=== PATIENT | male | born 2005 | race Caucasian/White ===

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

== ENCOUNTER 2024-08-20 07:53 | Emergency (ER) | payer SELFPAY ==
--- NOTE | ~2024-08-20 | CT_ITS ---
CLINICAL INDICATION: Right lower quadrant pain COMPARISON: None. TECHNIQUE: Multiple contiguous axial images of the abdomen and pelvis were performed following the ad ministration of with 100 mL Omnipaque-350 intravenous contrast The dose-length product (DLP) was 178.97 mGy-cm. Automated exposure control and iterative reconstruction technique were employed. FINDINGS/OBSERVATIONS: Visualized lower thorax: The bilateral lung bases are clear. The heart is of normal size, without pericardial effusion. Liver: The liver demonstrates homogeneous enhancement and is borderline enlarged measuring 19 cm in longitud inal dimension. Gallbladder and biliary system: The gallbladder is only minimally distended, and otherwise unremarkable. Pancreas: The pancreas enhances homogeneously without ductal dilatation. Spleen: The spleen enhances homogeneously and is not enlarged. Kidneys: The bilateral kidneys enhance symmetrically without hydronephrosis or renal calculi. Adrenal glands: Unremarkable. Gastrointestinal tract: Fecal stasis within the colon. Hypervascularity within the mucosa of the rectum, seminal vesicles, prostate gland and glans penis, c onsistent with patient's presentation. Query the presence of hematuria. Appendix: The air-filled appendix is of normal caliber (coronal series, images 33 through 42). Vasculature: Unremarkable. Lymph nodes: No pathologically enlarged or morphologically suspicious lymph nodes within the retroperitoneum or at the root of the mesentery. Pelvic structures: The bladder is only minimally distended, and otherwise unremarkable. The prostate gland is not enlarged, but demonstrates hypervascularity, as does the mucosa of the rect um, seminal vesicles, prostate gland and glans penis, consistent with patient's presentation. Query t he presence of hematuria. Body wall and musculoskeletal: No significant degenerative disease within the lower thoracic or lumbosacral spine. IMPRESSION: Hypervascularity within the mucosa of the rectum, seminal vesicles, prostate gland and glans penis, c onsistent with patient's presentation. Query the presence of associated hematuria. Reviewed, dictated and finalized at location A. IMPRESSION: Hypervascularity within the mucosa of the rectum, seminal vesicles, prostate gl and and glans penis, consistent with patient's presentation. Query the presence of associated hematuria.
--- OUTSIDE RECORDS SUMMARY | 2024-08-20 08:01 | XMS_ITS | Patient Health Record ---
Author Organization [facility] [employer] [facility] Address [address] [facility] [address] [place] [address] Care Team Providers Care Business Applications Specialist Name Role Phone Diallo MACIAS, Jaime Primary Care Provider Gunjan Chino Unavailable [phone] Yenny Hull Unavailable [phone] Allergies No Known Allergies Reason For Referral No Information Social History Sex Assigned At : Social History Observation Description Sex Assigned At Male Encounters Encounter Location Date Provider Diagnosis [facility] [employer] [place] [id number] [address] 12/25/2023 Yenny Hull [facility] [employer] [place] [place] [place] [address] [facility] [address] [address] 03/24/2024 Gunjan Puri Plan Of Treatment No Information Insurance Providers Payer Name Payer Address Payer Phone Subscriber Number Group Number Insured Name Patient Relationship to Insured Coverage Start Date Coverage End Date [facility] [address] [place] [address] [id number] Shahriar Man Self - patient is the insured Medical (General) History Medical History History ICD Code HTN
--- OUTSIDE RECORDS SUMMARY | 2024-08-20 08:01 | XMS_ITS | Continuity of Care Document ---
Author Organization [facility] Address [address] [place] [address] [place] [address] Phone Care Team Providers Care Head Operator Name Role Phone Chris Chung MD Unavailable Unavailab le Allergies, Adverse Reactions, Alerts Substance Reaction Status Criticality No Known Allergies Active No Inform ation Procedures Procedure Date OFFICE/OUTPATIENT VISIT, EST OFFICE/OUTPATIENT VISIT, [facility] Advance Directives Directive Yes / No Effective Date File Name Other Directive No N/A N/A WARNING:The information contained in this section is historical and is provided for information only and does not constitute a legal document or any assurance that the information is still accurate. Please verify the information with the mackenzie of the legal document before using it for clinical purposes. Encounters Encounter Description Practice Location Reason(s) For Visit Diagnoses Date Provider Providers Copied on Encounter [facility], [address] [place] [address], [id number], tel:[phone] [facility] No Information 3 Sheldon Perez. [address] [place] [address], [id number], [place]. tel:[phone] OFFICE/OUTPAT IENT VISIT, EST [facility], [address] [place] [address], [id number], tel:[phone] [facility] right knee pain (chief complaint) Tendinitis of right quadriceps tendon 3 Sheldon Perez. [address] [place] [address], [id number], [place]. tel:[phone] Referring Provider: Chris Chung, [address] [place] [address], [id number]. tel:[phone] OFFICE/OUTPAT IENT VISIT, [facility], [address] [place] [address], [id number], tel:[phone] [facility] right knee pain (chief complaint) Strain of right quadriceps, initial encounter Dianne Dean. [address] [place] [address], [id number], [place]. tel:[phone] Referring Provider: Chris Chung, [address] [place] [address], [id number]. tel:[phone] Family History Family Member Type Diagnosis Age At Onset No Information Payers Payer name Insurance type Covered green party ID Maria Doloresdesiree bushraanurag(ronSonya [id number] Social History Type Description Quantity Date Captured Comments Alcohol Use Details No Caffeine Use Details Unknown Tobacco Use Status No Information Smoking Status Never smoker Sex Male Chief Complaint And Reason For Visit No Information Reason For Referral Reason For Referral No Information History Of Present Illness Encounter Date Complaint History Of Prese nt Illness right knee pain right knee pain Functional Status Date Functional Assessmen t No Information Instructions Date Instruction Additional Infor mation No Information Assessments Type Assessment Date No Information Patient Care Teams Name Effective Dates (start - stop) Status Members No Information
--- OUTSIDE RECORDS SUMMARY | 2024-08-20 08:01 | XMS_ITS | Clinical Summary ---
Author Organization [facility] Address [address] [place] [address] Care Team Providers Care Welt Cutter Name Role Phone Geoffrey Duarte MD Primary Care Provider Source Comments [facility],non-owned Affiliates and Associated Physician Practices is amultiple site organization consisting of ambulatory clinics and hospital sitesin [place], [place], [place] and [place]. This disclosure is being madepursuant to the Care Everywhere program and may not contain all information available regarding this patient. Last updated 17.[facility] [employer] Allergies Active Allergy Reactions Criticality Noted Date Comments Bee Venom Swelling 09/05/2015 Medications * Be aware that medications may not be up to date on this document. Alwaysverify current medications with the patient. acetaminophen (TYLENOL) 160 MG/5ML solution Take 12.4 mL by mouth every 4 hours as needed for Fever or Pain 150 mL 0 09/12/2015 Active ibuprofen (MOTRIN) 100 MG chew tablet Take 1 Tab by mouth every 6 hours as needed for Pain 10 Tab 0 09/12/2015 Active Family History Medical History Relation Name Comments Anesthesia Reaction Mother confusio n and panic attack Relation Name Status Comments Mother Social History Tobacco Use Types Packs/Day Years Used Date Smoking Tobacco: Passive Smo ke Exposure - Never Smoker Alcohol Use Standard Drinks/Week Comments No 0 (1 standard drink = 0.6 oz pur e alcohol) Sex and Gender Information Value Date Recorded Sex Assigned at Not on file Legal Sex Male 5:44 AM MEDICAID ELIGIBILITY SPECIALIST Gender Identity Not on file Sexual Orientation Not on file Last Filed Vital Signs Vital Sign Reading Time Taken Comments Blood Pressure 121/76 11/05/2017 1:19 PM CDT Pulse 114 11/05/2017 1:19 PM CDT Temperature 36.9 C (98.4 F) 11/05/2017 1:19 PM CDT Respiratory Rate 18 11/05/2017 1:19 PM CDT Oxygen Saturation 100% 09/12/2015 8:30 AM CDT Inhaled Oxygen Concentration 100% 09/12/2015 8 :30 AM CDT Weight 40.6 kg (89 lb 8 oz) 11/05/2017 1:19 PM C DT Height 126.5 cm (4' 1.8) 09/12/2015 6:06 AM CDT Body Mass Index - - Plan of Treatment Health Maintenance Due Date Last Done Comments HIV SCREENING 12/07/2019 HPV VACCINE (1 - Male 3-dose series) 12/07/2019 MENINGOCOCCAL (Group B) VACC INE SHARED DECISION-MAKING (1 of 2 - Standard) 2020 HEPATITIS C SCREENING 12/02/2022 COVID-19 VACCINE (1 - 2023-2 5 season) 2023 DTAP/TDAP/TD VACCINES (1 - Tdap) 12/07/2023 HEPATITIS B VACCINE (1 of 3 - 19+ 3-dose series) 12/07/2023 DEPRESSION SCREENING 02/12/2024 INFLUENZA VACCINE (#1) 2024 ZOSTER VACCINE (1 of 2) 2054 HIB VACCINE Aged Out No longer eligi ble based on patient's age to complete this topic MENINGOCOCCAL GROUPS A/C/Y/W VACCINE Aged Out No longer eligible b ased on patient's age to complete this topic PNEUMOCOCCAL VACCINE Aged Out No long er eligible based on patient's age to complete this topic Insurance [id number] MEDICAID - [place] [employer] MEDICAID - OUT OF STATE [facility] [employer] [facility] Care Teams Welt Cutter Relationship Specialty Start Date End Date Geoffrey Duarte MD [address] [place] [address] PCP - General Family Medicine 11/05/17
--- OUTSIDE RECORDS SUMMARY | 2024-08-20 08:01 | XMS_ITS | Clinical Summary ---
Author Organization [facility] Address [facility] [place] [address] Care Team Providers Care Commercial Account Executive Name Role Phone Geoffrey Duarte MD Primary Care Provider Allergies Active Allergy Reactions Criticality Noted Date Comments Bee Venom Swelling 09/05/2015 Medications acetaminophen 160 MG/5ML solution Take 396.8 mg by mouth every 4 (four) hours as needed. 09/12/19 16 Active ibuprofen 100 MG chewable tablet Chew 100 mg by mouth every 6 (six) hours as needed. PRN 09/12/19 16 Active meclizine 25 MG tabletIndications: Vertigo Take 1 tablet (25 mg total) by mouth 2 (two) times daily as needed. 28 tablet 1 12/21/19 Active Additional Information Patient not taking.Reported on 11/30/2022 ARIPiprazole (ABILIFY) 15 MG tabletIndications: Outbursts of anger TAKE 1/2 TAB (7.5MG) AT BEDTIME FOR DISRUPTIVE MOOD DYSREGULATION DISORDER 15 tablet 11 03/07/19 Active Additional Information Patient not taking.Reported on 11/30/2022 lamoTRIgine (LAMICTAL) 100 MG tabletIndications: Bipolar I disorder, most recent episode (or current) manic, mild (CMS/HCC HHS/HCC) Take 1 tablet (100 mg total) by mouth daily. 90 tablet 3 03/07/19 Active Additional Information Patient not taking.Reported on 11/30/2022 escitalopram (LEXAPRO) 10 MG tabletIndications: Recurrent major depressive disorder, in partial remission Take 1 tablet (10 mg total) by mouth daily. 30 tablet 11 03/07/19 23 Active Additional Information Patient not taking.Reported on 11/30/2022 raNITIdine (ZANTAC) 150 MG capsuleIndications :Gastroesophageal reflux disease without esophagitis TAKE 1 TABLET BY MOUTH EVERY 12 HOURS NEEDED FOR HEARTBURN 60 capsule 3 12/01/19 23 Active ondansetron (ZOFRAN-ODT) 4 MG disintegrating tabletIndications: Nausea and vomiting, unspecified vomiting type Take 1 tablet (4 mg total) by mouth every 8 (eight) hours as needed for Nausea. 30 tablet 1 12/01/19 23 Active omeprazole (PRILOSEC) 40 MG capsuleIndications :Gastroesophageal reflux disease without esophagitis TAKE 1 CAPSULE BY MOUTH DAILY. 30 capsule 1 01/29/20 23 Active Active Problems Problem Noted Date Diagnosed Date Anxiety 01/15/2019 Primary insomnia 03/15/2017 Dermatitis 10/09/2016 Short stature 07/26/2016 ADHD (attention deficit hype ractivity disorder), combined type 06/27/2016 Allergic rhinitis 06/27/2016 GERD (gastroesophageal reflux disease) 7 Outbursts of anger 06/27/2016 Resolved Problems Problem Noted Date Diagnosed Date Resolved Date Well child visit 06/21/2016 10/23/2019 Immunizations Immunization Administration Dates Next Due Fluzone 6 Months+ Quad (0.5 mL Prefilled Syringe ) 11/22/2018,02/19/2018 Influenza Adult (Generic) 12/11/2016 Meningococcal Vac A,C,Y,W-135 Sc 09/27/2016 Tdap (Generic) 09/27/2016 Social History Tobacco Use Types Packs/Day Years Used Date Smoking Tobacco: Some Days Passive Smoke Exposure: Current Smokeless Tobacco: Never Tobacco Cessation:Ready to Q uit: No; Counseling Given: Yes Comments:physician will discuss if necessary Alcohol Use Standard Drinks/Week Comments No 0 (1 standard drink = 0.6 oz pur e alcohol) AUDIT-C Answer Date Recorded Frequency of Alcohol Consumption Never 02/26/2018 Average Number of Drinks Not on file 019 Frequency of Binge Drinking Not on file 02/11 PHQ-2 Answer Date Recorded Patient Health Questionnaire-2 Score 2 03/07/2022 Sex and Gender Information Value Date Recorded Sex Assigned at Not on file Legal Sex Male 9:06 PM CDT Gender Identity Not on file Sexual Orientation Not on file Last Filed Vital Signs Vital Sign Reading Time Taken Comments Blood Pressure 116/68 02/15/2021 7:35 AM DEVELOPER PROVER UPHOLSTERING Pulse 67 02/15/2021 7:35 AM DEVELOPER [employer]OVER UPHOLSTERING Temperature 36.6 C (97.9 F) 02/15/2021 7:35 AM DEVELOPER PROVER UPHOLSTERING Respiratory Rate 16 02/15/2021 7:35 AM DEVELOPER PROVER UPHOLSTERING Oxygen Saturation 97% 02/15/2021 7:35 AM DEVELOPER PROVER UPHOLSTERING Inhaled Oxygen Concentration - - Weight 59.9 kg (132 lb) 02/15/2021 7:35 AM DEVELOPER PROVER UPHOLSTERING Height 161.3 cm (5' 3.5) 02/15/2021 7:35 AM DEVELOPER PROVER UPHOLSTERING Body Mass Index 23.02 02/15/2021 7:35 AM DEVELOPER PROVER UPHOLSTERING Body Mass Index Percentile 76.54% 02/15/2021 7:3 5 AM DEVELOPER PROVER UPHOLSTERING Growth Chart: CDC (Boys, 2-2 0 Years) Plan of Treatment Health Maintenance Due Date Last Done Comments Hepatitis B Vaccines (3 of 3 - 3-dose series) 03/05/2006 01/08/2006, 03/13/2005 Annual Physical 09/24/2020 09/25/2019, 09/17/2018 Meningococcal B Vaccine (1 of 2 - Standard) 2020 Hepatitis C 2022 COVID-19 Vaccine (2 - season) 2023 08/04/2020 Pneumococcal Vaccine: Pediatrics (0 to 5 Years) and At-Risk Patients (6 to 49 Years) (1 of 2 - PCV) 12/07/2023 PHQ-2 (Physician Gerald) 02/12/2024 DTaP, Tdap and Td Vaccines (7 - Td or Tdap) 09/27/2026 09/27/2016, 09/23/2009, 06/13/2006, Additional history exists HPV Vaccines Completed 06/01/2015, 12/12, 09/14/2014 Meningococcal Vaccine Aged Out 09/27/2016 No drew cathleen eligible based on patient's age to complete this topic RSV Immunizations Under 20 Months Aged Out No longer eligible based on patient's age to complete this topic Insurance MEDICAID Care Teams Commercial Account Executive Relationship Specialty Start Date End Date Geoffrey Duarte MD [address] [facility] [address] [employer], [place] [address] PCP - General FAMILY PRACTICE 02/13/18
[2024-08-20 08:02] VITALS: BP 121/70; PULSE 73; RESP 17; TEMP 36.8; O2SAT 100
--- NOTE | 2024-08-20 08:12 | ED.GIBLEED ---
HPI - GI Bleed General Chief complaint: GI Bleed Stated complaint: blood in stool, back pain Time Seen by Provider: 08/20/24 07:59 History of Present Illness HPI Narrative: Pt presents with bright red rectal bleeding and rlq abdominal pain this morning. Pt denies vomiting. Pt has no significant GI history other than GERD. Related Data Home Medications ?Medication ?Instructions ?Recorded ?Confirmed ?Last Taken ?Type aripiprazole 15 mg tablet 7.5 mg PO DAILY 05/24/21 Unknown History clonidine HCl 0.1 mg tablet 0.1 mg PO ONCE 05/24/21 Unknown History escitalopram oxalate 10 mg tablet 10 mg PO DAILY 05/24/21 Unknown History lamotrigine 100 mg tablet 100 mg PO DAILY 05/24/21 Unknown History Allergies Allergy/AdvReac Type Severity Reaction Status Date / Time Bumble Bee Allergy Unknown unknown Uncoded 08/20/24 08:26 Review of Systems Review of Systems: All systems reviewed & are unremarkable except as noted in HPI and below PMFSH Social History Social History Substance use type: marijuana and prescription drug Exam Const: General: healthy appearing and no acute distress Nutritional Appearance: well nourished Orientation/consciousness: patient oriented x3 Limitations: no limitations Resp: Effort & Inspection: normal respiratory effort Auscultation: clear to auscultation bilaterally Cardio: Rate: regular rate Rhythm: regular rhythm GI: GI Palp: Yes Soft to palpation and Yes Tenderness to palpation present (GI) (minimal rlq but lateral to mcburney's no g/r/o) Auscultation: normal bowel sounds Rectal Exam: hemorrhoids (bleeding external hemorrhoid not thrombosed) Skin: General skin exam: normal color Neuro: General: patient oriented x3, moves all extremities and no focal motor deficits Speech: normal speech Extrem: General: normal to inspection and no clubbing, cyanosis or edema Psych: Mental Status: mental status grossly normal Affect: normal affect Attitude: cooperative Course Vital Signs Vital signs: Vital Signs Temperature 98.3 F 08/20/24 08:02 Pulse Rate 73 08/20/24 08:02 Respiratory Rate 17 08/20/24 08:02 Blood Pressure 121/70 08/20/24 08:02 Pulse Oximetry 100 08/20/24 08:02 Oxygen Delivery Room Air 08/20/24 08:02 Temperature 98.3 F 08/20/24 08:02 Pulse Rate 73 08/20/24 08:02 Respiratory Rate 17 08/20/24 08:02 Blood Pressure 121/70 08/20/24 08:02 Pulse Oximetry 100 08/20/24 08:02 Oxygen Delivery Room Air 08/20/24 08:02 MDM - GI Bleed MDM Narrative Medical decision making narrative: Pt has bleeding external hemmorhoid but also has rlq abdominal pain so will need to get CT and labs to rule out appy or colitis among others potential causes. will treat pain as well. CT no surgical issues. Pt feels better and bleeding has stopped. likely bleeding related to hemorrhoid. Lab Data 08/20/24 08:14 08/20/24 08:14 Labs: Lab Results 08/20/24 Range/Units 08:14 WBC 6.6 (4.5-10.0) K/mm3 RBC 5.17 (4.6-6.20) M/mm3 Hgb 14.9 (14.0-18.0) g/dL Hct 46.2 (42.0-52.0) % MCV 89.4 (80-100) fl MCH 28.8 (26-34) pg MCHC 32.3 (32-36) g/dl RDW 11.9 (11.5-14.5) % Plt Count 220 (150-375) k/mm3 MPV 8.8 (7.4-10.4) fl Immature Gran % (Auto) 0.2 (0-0.5) % Neut % (Auto) 53.7 (45.5-73.1) % Lymph % (Auto) 35.0 (18.3-44.2) % [place] % (Auto) 5.9 (2.6-8.5) % Eos % (Auto) 4.4 (0-4.4) % Baso % (Auto) 0.8 (0.2-1.2) % Lymph # (Auto) 2.30 (0.9-3.2) K/mm3 [place] # (Auto) 0.4 (0.1-0.6) K/mm3 Eos # (Auto) 0.3 (0-0.3) K/mm3 Baso # (Auto) 0.1 (0.0-0.1) K/mm3 Abs Immat Gran (auto) 0.01 (0.00-0.031) K/mm3 Absolute Neuts (auto) 3.5 (1.3-6.7) K/mm3 Absolute Nucleated RBC 0.000 (0.0-0.012) K/mm3 Nucleated RBC % 0.0 (0.0-0.2) % PT 12.8 (11.1-14.7) Seconds INR 1.0 APTT 27.5 (22.3-36.8) Seconds Sodium 141 (134-143) mmol/L Potassium 4.2 (3.4-5.0) mmol/L Chloride 106 (98-107) mmol/L Carbon Dioxide 27 (22-30) mmol/L Anion Gap 8 (4-12) mmol/L BUN 13 (8-21) mg/dL Creatinine 0.88 (0.7-1.3) mg/dL Estim Creat Clear Calc 86 ml/min Estimated GFR > 60 (59 - ) Glucose 91 (65-110) mg/dL Calcium 9.9 (8.9-10.7) mg/dL Total Bilirubin 0.2 (0.2-1.3) mg/dL AST 20 (17-59) U/L ALT 11 (6-50) U/L Alkaline Phosphatase 55 L (58-237) U/L Total Protein 6.9 (6.3-8.6) g/dL Albumin 4.4 (3.7-5.6) g/dL Discharge Plan Discharge Clinical Impression: Hemorrhoids Patient Disposition: Home Condition: Improved Instructions: Antibiotic Form, Hemorrhoids (DC), Rectal Bleeding (ED) Patient Language: Slovenian Prescriptions: New hydrocortisone [Anusol-HC] 2.5 % cream with perineal applicator 1 applic RECTAL DAILY PRN (Reason: hemorrhoids) Qty: 30 0RF No Action clonidine HCl 0.1 mg Tablet 0.1 mg PO ONCE lamotrigine 100 mg Tablet 100 mg PO DAILY escitalopram oxalate 10 mg Tablet 10 mg PO DAILY aripiprazole 15 mg Tablet 7.5 mg PO DAILY Follow-up/Referrals: Gerald,Geoffrey Delarosa MD [Primary Care Provider] -
[2024-08-20 08:20] LABS: Hematocrit 46.2 % (42.0-52.0); Hemoglobin 14.9 g/dL (14.0-18.0); Immature Granulocyte Percent A 0.2 % (0-0.5); Lymphocytes Absolute Auto 2.30 K/mm3 (0.9-3.2); Mean Corpuscular HGB Conc 32.3 g/dl (32-36); Mean Corpuscular Hemoglobin 28.8 pg (26-34); Mean Corpuscular Volume 89.4 fl (80-100); Nucleated Red Blood Cells Absolute Auto 0.000 K/mm3 (0.0-0.012); Nucleated Red Blood Cells Perc 0.0 % (0.0-0.2); Platelet Count Result 220 k/mm3 (150-375); Red Blood Count 5.17 M/mm3 (4.6-6.20); White Blood Count 6.6 K/mm3 (4.5-10.0)
[2024-08-20] MEDS: ONDANSETRON INJ 4 MG/2 ML VIAL IV PUSH (08:20)
[2024-08-20] MEDS: fentaNYL CITRATE INJ (*CRX) 100 MCG/2 ML VIAL 50 MCG IV PUSH (08:20)
[2024-08-20] MEDS: SODIUM CHLORIDE 0.9% IV 1,000 ML 999 ML IV CONT (08:21)
[2024-08-20 08:32] LABS: INR 1.0; Partial Thromboplastin Time 27.5 Seconds (22.3-36.8); Prothrombin Time 12.8 Seconds (11.1-14.7)
[2024-08-20 08:34] LABS: Alanine Aminotransferase 11 U/L (6-50); Albumin Level 4.4 g/dL (3.7-5.6); Alkaline Phosphatase 55 U/L (58-237); Anion Gap 8 mmol/L (4-12); Aspartate Amino Transferase 20 U/L (17-59); Bilirubin,Total 0.2 mg/dL (0.2-1.3); Blood Urea Nitrogen 13 mg/dL (8-21); Calcium 9.9 mg/dL (8.9-10.7); Carbon Dioxide 27 mmol/L (22-30); Chloride 106 mmol/L (98-107); Estimated CRCL calculation 86 ml/min; Estimated Glomerular Filt Rate > 60; Glucose 91 mg/dL (65-110); Potassium 4.2 mmol/L (3.4-5.0); Sodium 141 mmol/L (134-143); Total Protein 6.9 g/dL (6.3-8.6)
--- OUTSIDE RECORDS SUMMARY | 2024-08-20 08:35 | XMS_ITS | Clinical Summary ---
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 Pulse 67 02/15/2021 7:35 AM PRINCIPAL CONSULTING ENGINEER Temperature 36.6 C (97.9 F) 02/15/2021 7:35 AM PRINCIPAL CONSULTING ENGINEER Respiratory Rate 16 02/15/2021 7:35 AM PRINCIPAL CONSULTING ENGINEER Oxygen Saturation 97% 02/15/2021 7:35 AM PRINCIPAL CONSULTING ENGINEER Inhaled Oxygen Concentration - - Weight 59.9 kg (132 lb) 02/15/2021 7:35 AM PRINCIPAL CONSULTING ENGINEER Height 161.3 cm (5' 3.5) 02/15/2021 7:35 AM PRINCIPAL CONSULTING ENGINEER Body Mass Index 23.02 02/15/2021 7:35 AM PRINCIPAL CONSULTING ENGINEER Body Mass Index Percentile 76.54% 02/15/2021 7:3 5 AM PRINCIPAL CONSULTING ENGINEER Growth Chart: CDC (Boys, 2-2 0 Years) [...] of 2 - PCV) 12/07/2023 PHQ-2 (Physician [place]) 02/12/2024 DTaP, Tdap and Td Vaccines (7 - Td or Tdap) 09/27/2026 09/27/2016, 09/23/2009, 06/13/2006, Additional history exists HPV Vaccines Completed 06/01/2015, 12/12, 09/14/2014 Meningococcal Vaccine Aged Out 09/27/2016 No drew cathleen eligible based on patient's age to complete this topic RSV Immunizations Under 20 Months Aged Out No longer eligible based on patient's age to complete this topic Insurance MEDICAID Care Teams Technical Sales Associate Relationship Specialty Start Date End Date Geoffrey Duarte MD [address] [facility] [address] [place], [place] [id number] PCP - General FAMILY PRACTICE 02/13/18
--- OUTSIDE RECORDS SUMMARY | 2024-08-20 08:35 | XMS_ITS | Clinical Summary ---
Author Organization [facility] Address [address] [place] [address] Care Team Providers Care Checker Cashier Name Role Phone Geoffrey Duarte MD Primary Care Provider Source Comments [facility],non-owned Affiliates and Associated Physician Practices is amultiple site organization consisting of ambulatory clinics and hospital sitesin [place], [place], [place]. This disclosure is being madepursuant to the Care Everywhere program and may not contain all information available regarding this patient. 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 [address] [place] [address] PCP - General Family Medicine 11/05/17
--- OUTSIDE RECORDS SUMMARY | 2024-08-20 08:35 | XMS_ITS | Continuity of Care Document ---
Author Organization [facility] Address [address] [place] [address] [place] [address] Phone Care Team Providers Care Camp Coordinator Name Role Phone Chris Chung MD Unavailable Unavailab le Allergies, Adverse Reactions, Alerts Substance Reaction Status Criticality No Known Allergies Active No Inform ation Procedures Procedure Date OFFICE/OUTPATIENT VISIT, EST OFFICE/OUTPATIENT VISIT, [facility] Advance Directives Directive Yes / No Effective [...] Diagnoses Date Provider Providers Copied on Encounter [facility], [address] [place] [address], [id number], tel:[phone] [facility] No Information 3 Sheldon Perez. [address] [place] [address], [id number], [place]. tel:[phone] OFFICE/OUTPAT IENT VISIT, EST [facility], [address] [place] [address], [id number], tel:[phone] [facility] right knee pain (chief complaint) Tendinitis of right quadriceps tendon 3 Sheldon Perez. [address] [place] [address], [id number], [place]. tel:[phone] Referring Provider: Chris Chung, [address] [place] [address], [id number]. tel:[phone] OFFICE/OUTPAT IENT VISIT, [facility], [address] [place] [address], [id number], tel:[phone] [facility] right knee pain (chief complaint) Strain of right quadriceps, initial encounter Dianne Dean. [address] [place] [address], [id number], [place]. tel:[phone] Referring Provider: Chris Chung, [address] [place] [address], [id number]. tel:[phone] Family History Family Member Type Diagnosis Age At Onset No Information Payers Payer name Insurance type Covered green party ID Maria Doloresdesiree [id number] Social History Type Description Quantity Date Captured [...]
== END 2024-08-20 09:25 | disposition home or self-care (01) ==
PROVIDERS: Emergency Provider Emergency Medicine; PCP Family Medicine
DX: K64.9 Unspecified hemorrhoids (principal)
CPT/HCPCS: 36415; 74177; 80053; 85025; 85610; 85730; 96361; 96374; 96375; 99284; J2405; J3010; J7030; Q9967

== ENCOUNTER 2024-12-10 09:19 | Emergency (ER) | payer SELFPAY ==
--- NOTE | 2024-12-10 09:22 | ED_ITS ---
HPI - General Adult General Stated complaint: Return Back To Work Note per Pt Time Seen by Provider: 12/10/24 09:21 Source: patient Mode of arrival: ambulatory Limitations: no limitations History of Present Illness HPI narrative: Patient is a 19-year-old male who presents for return to work note. Patient states he passed out at work a week ago after being up for 3 days and was sent home by his boss. States his boss needs a note saying he can come back to work. Patient denies any more episodes of passing out since. Related Data Home Medications ?Medication ?Instructions ?Recorded ?Confirmed ?Last Taken ?Type lamotrigine 100 mg tablet 100 mg PO DAILY 05/24/21 Un known History Allergies Allergy/AdvReac Type Severity Reaction Status Date / Time Bumble Bee Allergy Unknown unknown Uncoded 08/20/24 08:26 Review of Systems Review of Systems: All systems reviewed & are unremarkable except as noted in HPI and below Constitutional: Constitutional: Denies body ache(s), Denies chills, Denies fatigue, Denies fever(s), Denies headache(s), Denies malaise and Denies weakness Eyes: Eyes: Denies blurry vision, Denies irritation and Denies loss of vision ENT: Denies otalgia, Denies headache(s), Denies nasal discharge, Denies sinus pain and Denies sore throat Cardiovascular: Cardiovascular: Denies chest pain, Denies irregular heart rhythm and Denies dyspnea Respiratory: Respiratory: Denies dyspnea Gastrointestinal: Gastrointestinal: Denies abdominal pain, Denies melena, Denies hematochezia, Denies diarrhea, Denies nausea and Denies vomiting Musculoskeletal: Musculoskeletal: Denies back pain, Denies myalgias and Denies arthralgias Integumentary/Breasts: Skin/Breast: Denies pruritus and Denies rash Neurologic: Denies headache(s), Denies loss of vision and Denies weakness Psychiatric: Psychiatric: Reports no additional psychiatric complaints Endocrine: Endocrine: Denies fatigue PMFSH Social History Social History Substance use type: marijuana and prescription drug Comments At time of signature, agree with nursing past medical, surgical, social and family history. There is no relevant family history pertinent to the presenting complaint. Exam Const: General: cooperative, healthy appearing, comfortable, no acute distress and well nourished Nutritional Appearance: well nourished Orientation/consciousness: patient oriented x3 Limitations: no limitations HENMT: Head: normal to inspection, normocephalic and atraumatic Ears: hearing grossly normal bilaterally, external ears normal, TM's normal bilaterally and EAC's normal Face/Nose/Sinus: Normal external nose present, normal facial exam and face symmetric Face and sinus: normal facial exam and face symmetric Mouth: Yes Normal oral and palatal mucosa present, Yes lip normal, Yes tongue normal, Yes Normal salivary glands and ducts present, Yes oropharynx normal and Yes moist mucous membranes Throat: posterior oropharynx normal, tonsils normal and uvula midline Eyes: General: appearance normal, both eyes and all related structures Alignment and Position: alignment normal and position normal Periorbital: periorbital findings normal Eyelids: eyelids normal Pupils: Equal, round and reactive pupils present EOM: EOMs intact bilaterally Neck: Neck: normal visual inspection, full ROM and supple Chest: Chest palpation & inspection: normal inspection of the chest Resp: Effort & Inspection: normal respiratory effort and able to speak in complete sentences Auscultation: clear to auscultation bilaterally Cardio: Rate: regular rate Rhythm: regular rhythm Heart sounds: S1 normal heart sound present and S2 normal heart sound present GI: Inspection: normal to inspection Skin: General skin exam: normal color and no rashes or lesions noted Neuro: General: patient oriented x3 and moves all extremities Cranial nerves: Yes Equal, round and reactive pupils present Cognition (Neuro): normal cognition Speech: normal speech Gait exam (Neuro): Normal gait present Motor exam (neuro): 5/5 motor strength present throughout, Normal motor muscle tone present throughout and Motor abnormalities not present Sensory Exam: normal sensation Extrem: General: normal to inspection, full ROM and no edema Psych: Appearance: grossly normal and well kempt Mental Status: mental status grossly normal Speech and movement: Normal speech and movement present Affect: normal affect Attitude: cooperative Thought process: Normal thought process present Course Course Emergency Course: Patient is aware of diagnosis, understands and agrees to treatment plan. Anticipatory guidance given. Patient agrees to follow-up as directed and is aware of reasons to seek care at the emergency department. Portions of this record may have been created with voice recognition software Level of Care: Express Care Visit Vital Signs Vital signs: Reviewed Medical Decision Making MDM Narrative Medical decision making narrative: Pt well hydrated appearing, in no respiratory distress, hemodynamically stable. Recommend supportive care. The patient is stable at time of discharge the clinical impression was discussed and the patient was given the opportunity to ask questions, which were addressed as completely as possible given the information available at present. Anticipatory guidance and return to care precautions were discussed and the importance of primary care follow-up was stressed and encouraged. The patient voiced understanding of the plan, indications to return, and the need for follow-up. Exam findings show no acute concerns or changes Patient is appropriate for outpatient treatment and follow-up. Differential Diagnosis Differential Diagnosis: Normal physical exam Medical Records Medical records reviewed: Yes I reviewed the external patient's medical records. Vital Signs Vital Signs: Reviewed Discharge Plan Discharge Clinical Impression: Normal exam Patient Disposition: Home Condition: Stable Instructions: Normal Exam (ED) Additional Instructions: 1) Please call to establish a primary care doctor in the next 1-2 days. 2) If you have any worsening of symptoms or any other urgent concerns please go to the ER. 3) Please continue taking your home medications as usual. 4) Please read and follow information included in discharge instructions. If you are having a hard time finding a physician please call our [facility] group liaison at [phone]. Patient Language: Macedonian Prescriptions: No Action hydrocortisone [Anusol-HC] 2.5 % cream with perineal applicator 1 applic RECTAL DAILY PRN (Reason: hemorrhoids) Qty: 30 0RF clonidine HCl 0.1 mg Tablet 0.1 mg PO ONCE lamotrigine 100 mg Tablet 100 mg PO DAILY escitalopram oxalate 10 mg Tablet 10 mg PO DAILY aripiprazole 15 mg Tablet 7.5 mg PO DAILY Follow-up/Referrals: Gerald,Geoffrey Delarosa MD [Primary Care Provider, Unknown] - 3 Days Sunday Valenzuela MD [Physician, Family Practice] - 3 Days Referral Note: Establish care Stand Alone Forms: Work/School Release IP Time of Disposition: 09:37
[2024-12-10 09:27] VITALS: BP 114/61; PULSE 65; RESP 16; TEMP 36.9; O2SAT 100
== END 2024-12-10 09:43 | disposition home or self-care (01) ==
PROVIDERS: Emergency Provider Nurse Practitioner Family; PCP Family Medicine
DX: Z02.79 Encounter for issue of other medical certificate (principal)
CPT/HCPCS: 99211; G0463